=== PATIENT | male | born 1955 | race Caucasian/White ===

== ENCOUNTER 2021-02-04 09:12 | Emergency (ER) | payer MEDICARE ==
[2021-02-04] MEDS ORDERED: SODIUM CHLORIDE 0.9% 50 ML IVPB ONE (10:45)
--- NOTE | 2021-02-04 10:57 | ED ---
General Adult HPI - General Chief complaint: Upper Respiratory Infection Stated complaint: Covid symptoms Time Seen by Provider: 02/04/21 10:01 Source: patient Mode of arrival: ambulatory Limitations: no limitations - History of Present Illness Initial comments: 65-year-old male presents to the emergency room for a chief complaint of not feeling well. Patient reports that he has had body aches a cough and nausea for about 5 days now. Patient states he is vaccinated for COVID-19 so did not think he had this however when his temperature was 100.5 and made him concerned. He states he came to the emergency room to be tested.Patient has no other complaints at this time including shortness of breath, chest pain, abdominal pain, nausea or vomiting, headache, or visual changes. - Related Data Allergies Allergy/AdvReac Type Severity Reaction Status Date / Time No Known Allergies Allergy Verified 02/04/21 09:28 Review of Systems ROS Statement: Those systems with pertinent positive or pertinent negative responses have been documented in the HPI. ROS Other: All systems not noted in ROS Statement are negative. Past Medical History Past Medical History: Thyroid Disorder History of Any Multi-Drug Resistant Organisms: None Reported Additional Past Surgical History / Comment(s): prostate removal, tumor removed from nose, benign growth removed from back of head. Past Psychological History: No Psychological Hx Reported Smoking Status: Former smoker Past Alcohol Use History: Rare Past Drug Use History: None Reported General Exam Limitations: no limitations General appearance: alert, in no apparent distress Head exam: Present: atraumatic Eye exam: Present: normal appearance, PERRL, EOMI. Absent: scleral icterus, conjunctival injection ENT exam: Present: normal exam, mucous membranes moist Neck exam: Present: normal inspection, full ROM. Absent: tenderness Respiratory exam: Present: normal lung sounds bilaterally. Absent: respiratory distress, wheezes Cardiovascular Exam: Present: regular rate, normal rhythm, normal heart sounds GI/Abdominal exam: Present: soft, normal bowel sounds. Absent: distended, tenderness Neurological exam: Present: alert Course Vital Signs 02/04/21 09:22 Temperature 98.9 F Pulse Rate 74 Respiratory 20 Rate Blood Pressure 139/91 O2 Sat by Pulse 95 Oximetry Medical Decision Making - Lab Data Lab Results 02/04/21 Range/Units 09:31 Coronavirus (PCR) Detected A (Not Detectd) Disposition Clinical Impression: COVID-19 Disposition: HOME SELF-CARE Condition: Good Instructions (If sedation given, give patient instructions): Coronavirus Disease 2019 (COVID-19) Additional Instructions: Please follow up with your primary care doctor. Take vitamins D, C , zinc. Return to the ER for any worsening symptoms. Is patient prescribed a controlled substance at d/c from ED?: No Referrals: Darek Brooks MD [Primary Care Provider] - 1-2 days Time of Disposition: 10:56
[2021-02-04] MEDS ORDERED: CASIRIVIMAB (REGN10933) (EUA) 600 MG, IMDEVIMAB (REGN10987) (EUA) 600 MG in SODIUM CHLO... IVPB ONE (11:00)
[2021-02-04 11:23] VITALS: RESP 18
[2021-02-04 12:57] VITALS: BP 121/77; PULSE 72; TEMP 98.2
== END 2021-02-04 12:56 | disposition home or self-care (01) ==
LOC: EC 09:12
DX: U07.1 COVID-19 (principal); Z87.891 Personal history of nicotine dependence
CPT/HCPCS: 87635; 99283; Q0243

== ENCOUNTER 2022-06-11 08:05 | Emergency (ER) | payer MEDICARE ==
[2022-06-11 08:24] VITALS: TEMP 98
[2022-06-11] MEDS ORDERED: MORPHINE SULFATE 4 MG/ML SYRINGE IM STA (08:52)
[2022-06-11] MEDS ORDERED: KETOROLAC 15 MG/ML 1 ML VIAL IM STA (08:52)
[2022-06-11] MEDS ORDERED: predniSONE 50 MG TAB PO STA (08:52)
--- NOTE | 2022-06-11 09:00 | ED ---
Back Pain HPI - General Chief Complaint: Back Pain/Injury Stated Complaint: back pain Time Seen by Provider: 06/11/22 08:39 Source: patient, RN notes reviewed Limitations: no limitations - History of Present Illness Initial Comments: This is a 66-year-old male who presents to the emergency department for concerns of sciatica. States that 4 days ago, he was doing a lot of bending and lifting at work. 3 days ago, he started to develop pain in the left lower back with radiation down the leg. He has had similar problems with sciatica on the right side. He has tried ibuprofen, Tylenol, and muscle relaxants with no relief in symptoms. States that it is very hard to sleep due to the pain. Denies any loss of bowel/bladder control or saddle anesthesia. Denies any fevers, chills, sore throat, cough, dyspnea, chest pain, palpitations, abdominal pain, nausea, vomiting, diarrhea, or headaches. MD Complaint: back pain Onset/Timin -: days(s) Similar Symptoms Previously: Yes - Related Data Home Medications Medication Instructions Recorded Confirmed Cholecalciferol [Vitamin D3 (125 125 mcg PO DAILY 02/04/21 02/04/21 Mcg = 5000 Iu)] Levothyroxine Sodium [Synthroid] 50 mcg PO DAILY 02/04/21 02/04/21 Terbinafine [LamISIL] 250 mg PO DAILY 02/04/21 02/04/21 Previous Rx's Medication Instructions Recorded HYDROcodone/APAP 5-325MG [Gray 1 tab PO Q6HR PRN 3 Days #12 tab 06/11/22 5-325] Lidocaine 5% Patch [Lidoderm 5% 1 patch TOPICAL DAILY PRN #30 patch 06/11/22 Patch] predniSONE 50 mg PO DAILY 5 Days #5 tablet 06/11/22 Allergies Allergy/AdvReac Type Severity Reaction Status Date / Time No Known Allergies Allergy Verified 06/11/22 08:18 Review of Systems ROS Statement: Those systems with pertinent positive or pertinent negative responses have been documented in the HPI. ROS Other: All systems not noted in ROS Statement are negative. Past Medical History Past Medical History: Thyroid Disorder History of Any Multi-Drug Resistant Organisms: None Reported Additional Past Surgical History / Comment(s): prostate removal, tumor removed from nose, benign growth removed from back of head. Past Psychological History: No Psychological Hx Reported Smoking Status: Former smoker Past Alcohol Use History: Rare Past Drug Use History: None Reported General Exam Limitations: no limitations General appearance: alert, in no apparent distress Head exam: Present: atraumatic, normocephalic, normal inspection Respiratory exam: Present: normal lung sounds bilaterally. Absent: respiratory distress, wheezes, rales, rhonchi, stridor Cardiovascular Exam: Present: regular rate, normal rhythm, normal heart sounds. Absent: systolic murmur, diastolic murmur, rubs, gallop, clicks Back exam: Present: normal inspection, other (Range of motion limited by pain). Absent: tenderness Neurological exam: Present: alert, oriented X3, CN II-XII intact Psychiatric exam: Present: normal affect, normal mood Skin exam: Present: warm, dry, intact, normal color. Absent: rash Course Vital Signs 06/11/22 06/11/22 08:19 10:45 Temperature 98 F 98 F Pulse Rate 78 60 Respiratory 18 16 Rate Blood Pressure 125/87 143/90 O2 Sat by Pulse 98 97 Oximetry Medical Decision Making - Medical Decision Making This is a 66-year-old male who presents to the emergency department for left lower back pain. Was pt. sent in by a medical professional or institution? @ -No Did you speak to anyone other than the patient for history? @ -No Did you review nursing and triage notes? @ -Yes, and I agree, it is accurate with regards to the patient's symptoms. Were old charts reviewed? @ -No Differential Diagnosis? @ -Differential Back Pain: Strain, zoster, cauda equina syndrome, epidural abscess, vertebral osteomyelitis, discitis, fracture, subluxation, disc herniation, DJD, spinal stenosis, dissection, AAA, pancreatitis, peptic ulcer disease, pyelonephritis, kidney stone, this is not meant to be an all-inclusive list. X-rays interpreted by me (1pt min.)? @ -X-ray of the lumbar spine obtained. My interpretation identifies diffuse arthritic changes with no acute fractures. What testing was considered but not performed? (CT, X-rays, U/S, labs)? Why? @ -None What meds were considered but not given? Why? @ -None Did you discuss the management of the patient with other professionals? @ -No Did you reconcile home meds? @ -No Was smoking cessation discussed for >3mins.? @ -No Was critical care preformed (if so, how long)? @ -No Were there social determinants of health that impacted care today? How? (Homelessness, low income, unemployed, alcoholism, drug addiction, transportation, low edu. Level, literacy, decrease access to med. care, correction, rehab)? @ -No Was there de-escalation of care discussed even if they declined? (Discuss DNR or withdrawal of care, Hospice)? @ -No What co-morbidities impacted this encounter? (DM, HTN, Smoking, COPD, CAD, Cancer, CVA, Hep., AIDS, mental health diagnosis, sleep apnea, morbid obesity)? @ -None Was patient admitted / discharged? @ -Discharged. X-ray of the lumbar spine obtained revealing severe arthritic changes. Physical exam findings and the patient reported symptoms are consistent with a lumbar radiculopathy. Pain was well-controlled emergency department. Prescription for prednisone, Gray, and lidocaine patches provided with dosing instructions reviewed. He is advised to take the Gray sparingly when his pain is most severe and to avoid driving or operating machinery when taking this. He was also given information for follow-up with orthopedics to r eevaluate symptoms and discuss any other treatment options. Red flag symptoms, including loss of bowel/bladder control or saddle anesthesia were reviewed, which would necessitate the need for him to return to the emergency department immediately. Undiagnosed new problem with uncertain prognosis? @ -None Drug Therapy requiring intensive monitoring for toxicity (Heparin, Nitro, Insulin, Cardizem)? @ -None Were any procedures done? @ -None Diagnosis/symptom? @ -Left lumbar radiculopathy Acute, or Chronic, or Acute on Chronic? @ -Acute Uncomplicated (without systemic symptoms) or Complicated (systemic symptoms)? @ -Uncomplicated Side effects of treatment? @ -None Exacerbation, Progression, or Severe Exacerbation] @ -Not applicable Poses a threat to life or bodily function? @ -No Return precautions reviewed in depth, the patient is instructed to return to the emergency department with any new, worsening, or concerning symptoms. Patient verbalized understanding. This case was discussed in detail with the attending ED physician, Dr. Villanueva. Presentation, findings, and treatment plan discussed in detail as well. - Radiology Data Radiology results: report reviewed, image reviewed Disposition Clinical Impression: Lumbar radiculopathy Disposition: HOME SELF-CARE Instructions (If sedation given, give patient instructions): Acute Low Back Pain (ED), Lumbar Radiculopathy (ED) Additional Instructions: Return to the emergency department with any new, worsening, or concerning symptoms, especially if you have any loss of bowel or bladder control. Take the prednisone daily for 5 days. You may take this with Tylenol. You can also apply lidocaine patches daily as well if you find it beneficial. Contact orthopedics as listed below. You can also follow up with your orthopedics office, whichever one can get you in faster. Try to get plenty of rest and avoid any excess bending or lifting over the next several days. Follow up with your primary care provider in 1-2 days. Prescriptions: Lidocaine 5% Patch [Lidoderm 5% Patch] 1 patch TOPICAL DAILY PRN #30 patch PRN Reason: Pain HYDROcodone/APAP 5-325MG [Gray 5-325] 1 tab PO Q6HR PRN 3 Days #12 tab PRN Reason: Pain predniSONE 50 mg PO DAILY 5 Days #5 tablet Is patient prescribed a controlled substance at d/c from ED?: Yes When asked, does pt state using other controlled substances?: No If prescribed controlled substance>3 days was MAPS reviewed?: Prescribed <3 Days Referrals: Darek Brooks MD [Primary Care Provider] - 1-2 days Reji Salamanca DO [Doctor of Osteopathic Medicine] - 1-2 days
--- NOTE | 2022-06-11 09:52 | XR ---
EXAM TYPE: LUMBAR SPINE X RAY SERIES COMPARISON: NONE HISTORY: Pain TECHNIQUE: 4 views are submitted. FINDINGS: Alignment is anatomic. The pedicles are intact. The transverse processes are intact. There is maritza re degenerative disc disease L5-S1 with grade 1 anterolisthesis suspected bilateral spondylolysis of L5. There is mild additional multilevel degenerative disc disease and hypertrophic changes. Scoliotic curvature of the spine. IMPRESSION: 1. Severe degenerative disc disease L5-S1 with bilateral spondylolysis and grade 1 anterolisthesis.
[2022-06-11 10:47] VITALS: BP 143/90; PULSE 60; RESP 16
== END 2022-06-11 10:47 | disposition home or self-care (01) ==
LOC: EC 08:05
DX: M54.16 Radiculopathy, lumbar region (principal); E07.9 Disorder of thyroid, unspecified; Z79.890 Hormone replacement therapy; Z87.891 Personal history of nicotine dependence
CPT/HCPCS: 72110; 99283; 96372 ×2; J2270; J1885; J7512

== ENCOUNTER 2022-06-26 06:12 | Emergency (ER) | payer MEDICARE ==
[2022-06-26] MEDS ORDERED: HYDROmorphone 1 MG/ML 1 ML SYRINGE IVP STA (06:42)
--- NOTE | 2022-06-26 07:09 | ED ---
Back Pain HPI - General Chief Complaint: Back Pain/Injury Stated Complaint: L side pain Time Seen by Provider: 06/26/22 06:30 Source: patient, family, RN notes reviewed Limitations: no limitations - History of Present Illness Initial Comments: This a 66-year-old male presents emergency Department with chief complaint of back pain rating down his left leg. Patient states that he's been dealing with this for last 19 days. Patient states she's had extreme pain minimal male living with any oral pain meds. Patient has seen Dr. Hines was scheduled for an MRI today but was told yesterday he was not to be covered by his insurance. Patient states that he cannot tolerate the pain since he is out of his pain meds in which she states she cannot get comfortable in any position. He had constant pain rating down his leg states it makes it difficult to move around at times. He denies any new trauma denies any bowel, bladder incontinence or retention, denies any lower extremity discoloration, saddle anesthesias. - Related Data Home Medications Medication Instructions Recorded Confirmed Levothyroxine Sodium [Synthroid] 50 mcg PO DAILY 02/04/21 06/26/22 Aspirin EC [Ecotrin Low Dose] 81 mg PO DAILY 06/26/22 06/26/22 Cholecalciferol [Vitamin D3 (25 50 mcg PO DAILY 06/26/22 06/26/22 Mcg = 1000 Iu)] HYDROcodone/APAP 5-325MG [Imperial 1 tab PO Q6HR 06/26/22 06/26/22 5-325] Krill/Om-3/Dha/Epa/Phospho/Ast 1 cap PO DAILY 06/26/22 06/26/22 [Krill Oil 500 mg Softgel] Magnesium Oxide [Magnesium] 500 mg PO DAILY 06/26/22 06/26/22 Previous Rx's Medication Instructions Recorded Gabapentin [Neurontin] 300 mg PO BID #20 cap 06/26/22 Allergies Allergy/AdvReac Type Severity Reaction Status Date / Time No Known Allergies Allergy Verified 06/26/22 11:13 Review of Systems ROS Statement: Those systems with pertinent positive or pertinent negative responses have been documented in the HPI. ROS Other: All systems not noted in ROS Statement are negative. Past Medical History Past Medical History: Thyroid Disorder History of Any Multi-Drug Resistant Organisms: None Reported Additional Past Surgical History / Comment(s): prostate removal, tumor removed from nose, benign growth removed from back of head. Past Psychological History: No Psychological Hx Reported Smoking Status: Former smoker Past Alcohol Use History: Rare Past Drug Use History: None Reported General Exam Limitations: no limitations General appearance: alert, in no apparent distress Head exam: Present: atraumatic, normocephalic, normal inspection Eye exam: Present: normal appearance, PERRL, EOMI. Absent: scleral icterus, conjunctival injection, periorbital swelling ENT exam: Present: normal exam, normal oropharynx, mucous membranes moist Neck exam: Present: normal inspection, full ROM. Absent: tenderness, meningismus, lymphadenopathy Respiratory exam: Present: normal lung sounds bilaterally. Absent: respiratory distress, wheezes, rales, rhonchi, stridor Cardiovascular Exam: Present: regular rate, normal rhythm, normal heart sounds. Absent: systolic murmur, diastolic murmur, rubs, gallop, clicks Back exam: Present: tenderness. Absent: full ROM Course Vital Signs 06/26/22 06/26/22 06/26/22 06:22 06:56 09:31 Temperature 97.3 F L Pulse Rate 62 55 L Respiratory 18 18 Rate Blood Pressure 134/86 133/86 O2 Sat by Pulse 95 95 Oximetry 06/26/22 12:00 Temperature 97.8 F Pulse Rate 78 Respiratory 16 Rate Blood Pressure 152/95 O2 Sat by Pulse 97 Oximetry Medical Decision Making - Medical Decision Making Was pt. sent in by a medical professional or institution (, PA, LINK ASSEMBLER, urgent care, hospital, or [facility]...) When possible be specific @ -No Did you speak to anyone other than the patient for history (EMS, parent, family, police, friend...)? What history was obtained from this source @ -No Did you review nursing and triage notes (agree or disagree)? Why? @ -I reviewed and agree with nursing and triage notes Were old charts reviewed (outside hosp., previous admission, EMS record, old EKG, old radiological studies, urgent care reports/EKG's, [facility] records)? Report findings @ -No old charts were reviewed Differential Diagnosis (chest pain, altered mental status, abdominal pain women, abdominal pain men, vaginal bleeding, weakness, fever, dyspnea, syncope, headache, dizziness, GI bleed, back pain, seizure, CVA, palpatations, mental health, musculoskeletal)? @ -Back pain, lumbar radiculopathy, herniated disc, bulging disks, this list is not all inclusive EKG interpreted by me (3pts min.). @ -None X-rays interpreted by me (1pt min.). @ -None done MRI interpreted by me (1pt min.). @ -MRI shows L4-L5 disc herniation and neuroforaminal narrowing U/S interpreted by me (1pt. min.). @ -None done What testing was considered but not performed or refused? (CT, X-rays, U/S, labs)? Why? @ -None What meds were considered but not given or refused? Why? @ -None Did you discuss the management of the patient with other professionals (professionals i.e. , PA, LINK ASSEMBLER, lab, RT, psych nurse, social media specialist, it operations manager, teacher, tactical debriefer officer, rifle case repairer)? Give summary @ -rodney berry with orthopedics associate reviewed MRI and discuss case recommended outpatient follow-up for injections with Dr. Galicia or pain management he does not need emergent surgery patient has no red flag symptoms. Was smoking cessation discussed for >3mins.? @ -No Was critical care preformed (if so, how long)? @ -No Were there social determinants of health that impacted care today? How? (Homelessness, low income, unemployed, alcoholism, drug addiction, transportation, low edu. Level, literacy, decrease access to med. care, correction, rehab)? @ -No Was there de-escalation of care discussed even if they declined (Discuss DNR or withdrawal of care, Hospice)? DNR status @ -No What co-morbidities impacted this encounter? (DM, HTN, Smoking, COPD, CAD, Cancer, CVA, ARF, Chemo, Hep., AIDS, mental health diagnosis, sleep apnea, morbid obesity)? @ -None Was patient admitted / discharged? Hospital course, mention meds given and route, prescriptions, significant lab abnormalities, going to OR and other pertinent info. @ -Discharge patient had an MRI showing degenerative changes patient does not have a red flag symptoms case discussed with orthopedics with recommended follow-up no emergent treatment. Undiagnosed new problem with uncertain prognosis? @ -No Drug Therapy requiring intensive monitoring for toxicity (Heparin, Nitro, Insulin, Cardizem)? @ -No Were any procedures done? @ -No Diagnosis/symptom? @ -Lumbar radiculopathy, herniated disc Acute, or Chronic, or Acute on Chronic? @ -Acute Uncomplicated (without systemic symptoms) or Complicated (systemic symptoms)? @ -Uncomplicated Side effects of treatment? @ -No Exacerbation, Progression, or Severe Exacerbation? @ -No Poses a threat to life or bodily function? How? (Chest pain, [place], [place], pneumonia, PE, COPD, DKA, ARF, appy, cholecystitis, CVA, Diverticulitis, Homicidal, Suicidal, threat to staff... and all critical care pts) @ -No Disposition Clinical Impression: Lumbar pain with radiation down left leg, Lumbar disc herniation with radiculopathy Disposition: HOME SELF-CARE Condition: Stable Instructions (If sedation given, give patient instructions): Acute Low Back Pain (ED) Additional Instructions: Please return to the Emergency Department if symptoms worsen or any other concerns. Prescriptions: Gabapentin [Neurontin] 300 mg PO BID #20 cap Is patient prescribed a controlled substance at d/c from ED?: No Referrals: Darek Brooks MD [Primary Care Provider] - 1-2 days Darek Galicia MD [STAFF PHYSICIAN] - 1-2 days [facility] [NON-STAFF] - 1-2 days Time of Disposition: 12:18
[2022-06-26] MEDS ORDERED: KETOROLAC 15 MG/ML 1 ML VIAL IVP STA (07:23)
[2022-06-26] MEDS ORDERED: methylPREDNISolone SOD SUCCI 125 MG/2 ML VIAL IV STA (07:23)
[2022-06-26] MEDS ORDERED: HYDROmorphone 0.5 MG/0.5 ML SYRINGE IVP STA (10:03)
--- NOTE | 2022-06-26 11:05 | MR ---
EXAMINATION TYPE: MR lumbar spine wo con DATE OF EXAM: 06/26/2022 10:46 AM COMPARISON: X-ray 06/11/2022. CLINICAL INDICATION:Male, 66 years old with history of Lumbar radiculopathy, leg weakness; Low back p ain, leg weakness TECHNIQUE: Multi planar, multi sequence imaging was performed utilizing: T1-weighted, T2-weighted, a nd turbo inversion recovery imaging of the lumbar spine. IV Contrast: None. FINDINGS: Alignment: The lumbar vertebral bodies have preserved heights. There is straightening of the lumbar a lignment. Cord: The conus medullaris and the distal spinal cord appear unremarkable with regards to their signa l intensity and morphology. Bones/Discs: Multilevel disc desiccation. There is disc space narrowing most proximal L5-S1 and L1-L2 . No abnormal bony edema on inversion recovery sequences to suggest fracture. T12-L1: No evidence of significant spinal canal stenosis or neural foraminal stenosis. L1-L2: Disc bulge and facet joint arthropathy without significant spinal canal stenosis and mild bila teral neural foraminal stenosis. L2-L3: No evidence of significant spinal canal stenosis or neural foraminal stenosis. L3-L4: Disc bulge and facet joint arthropathy result in mild spinal canal and mild bilateral neural f oraminal stenosis. Trace right facet joint effusion. L4-L5: Disc bulge and facet joint arthropathy without significant spinal canal stenosis and severe le ft and mild right neural foraminal stenosis. Trace bilateral facet joint effusions. L5-S1: The disc is rounded posterior morphology without significant spinal canal stenosis. Facet join t arthropathy with mild right and moderate left neural foraminal stenosis. Trace left facet joint eff usion. Other findings: Right high T2 signal renal cyst. IMPRESSION: 1. No definitive evidence of disc herniation or significant spinal canal stenosis. 2. Multilevel disc degeneration with associated osteoarthritic changes worse at L4-L5 with severe le ft neural foraminal stenosis.
[2022-06-26 12:28] VITALS: BP 152/95; PULSE 78; RESP 16; TEMP 97.8
== END 2022-06-26 12:35 | disposition home or self-care (01) ==
LOC: EC 06:12
DX: M51.16 Intervertebral disc disorders with radiculopathy, lumbar region (principal); E07.9 Disorder of thyroid, unspecified; Z87.891 Personal history of nicotine dependence; Z79.890 Hormone replacement therapy; Z79.82 Long term (current) use of aspirin
CPT/HCPCS: 72148; 99283; 96374; 96375 ×2; 96376; J2930; J1170 ×2; J1885